=== PATIENT | male | born 1955 | race Caucasian/White ===

== ENCOUNTER → 2016-07-28 | Day surgery (SDC) | payer OTHER ==
[2016-07-17 09:59] VITALS: Ht 180.3 cm; Wt 127.3 kg
[~2016-07-28] VITALS: Ht 180.3 cm; Wt 127.3 kg
[~2016-07-28] MED LIST: ATEN100T8 PO; LIDOCAINE HCL 2% 2 ML VIAL (20MG/ML) ONE; MIDAZOLAM HCL 1 MG/ML 2ML VIAL ONE; MULT-506 PO; ONDANSETRON INJ 2 MG/ML 2 ML VIAL ONE; PROPOFOL IV EMULSION 10 MG/ML 20 ML VIAL IV ONE; PRVC40 PO; QUIN20TA30 PO; WARF5TAB7 PO
--- NOTE | 2016-07-28 14:43 | Endo History and Physical ---
History & Physical Date of Service: Jul 28, 2016. 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) Hx Thoracic Surgery: No Hx Orthopedic: Yes (RT KNEE SURGERY) Hx Urinary Tract Surgery: No Family History None Social History Smoking Status: Former Smoker Hx Substance Use: No Hx Alcohol Use: No Allergies Coded Allergies: No Known Allergies (Unverified , 07/28/16) Current Medications Reported Home Medications Medications Dose Route/Sig Max Daily Dose Days Date Category Dose Instructions Multivitamin (Multivitamins) Tab 1 Tab PO DAILY 06/09/16 Reported Jantoven (Warfarin Sodium) 5 Mg Tab 1.5 Tabs PO 5XWK 06/09/16 Reported SUN, MON, WED, THURS, FRI Jantoven (Warfarin Sodium) 5 Mg Tab 5 Mg PO 2XWK 06/09/16 Reported TUES, SAT Pravastatin Sodium (Pravastatin Sod) 40 Mg Tab 1 Tab PO HS 06/09/16 Reported Quinapril Hcl 20 Mg Tab 1 Tab PO QAM 06/09/16 Reported Tenoretic 100 Mg/25 Mg (Atenolol/Chlorthalidone) 100 Mg/25 Mg Tab 1 Tab PO QAM 05/24/12 Reported Vital Signs Weight (Kilograms): 127.27 Height (Feet): 5 Height (Inches): 11 Date Time Temp Pulse Resp B/P Pulse Ox O2 Delivery O2 Flow Rate FiO2 07/28/16 14:20 37.1 85 18 117/87 96 Room Air Physical Exam General Appearance: + obese Respiratory/Chest: Respiratory effort: no dyspnea Cardiovascular: Heart Auscultation: RRR Abdomen: Inspection & Palpation: soft Assessment and Plan For screening colonoscopy
--- NOTE | 2016-07-28 15:01 | Discharge Instructions ---
Endoscopy Patient Instructions Date / Procedure(s) Performed Jul 28, 2016. Colonoscopy Allergy Information Coded Allergies: No Known Allergies (Unverified , 07/28/16) Discharge Date / Findings Jul 28, 2016. Polyp, hemorrhoids Medication Instructions Stopped Medication(s): WARFARIN LAST DOSE 07/22/16 Restart Stopped Medication(s): resume meds Reported Home Medications Medications Dose Route/Sig Max Daily Dose Days Date Category Dose Instructions Multivitamin (Multivitamins) Tab 1 Tab PO DAILY 06/09/16 Reported Jantoven (Warfarin Sodium) 5 Mg Tab 1.5 Tabs PO 5XWK 06/09/16 Reported SUN, MON, WED, TH, FRI Jantoven (Warfarin Sodium) 5 Mg Tab 5 Mg PO 2XWK 06/09/16 Reported TUES, SAT Pravastatin Sodium (Pravastatin Sod) 40 Mg Tab 1 Tab PO HS 06/09/16 Reported Quinapril Hcl 20 Mg Tab 1 Tab PO QAM 06/09/16 Reported Tenoretic 100 Mg/25 Mg (Atenolol/Chlorthalidone) 100 Mg/25 Mg Tab 1 Tab PO QAM 05/24/12 Reported Provider Instructions Activity Restrictions - No exercising or heavy lifting for 24 hours. - Do not drink alcohol the day of the procedure. - Do not drive a car or operate machinery until the day after the procedure. - Do not make any important decisions or sign important papers in 24 hours after the procedure. Following Day: - Return to full activity which may include returning to work/school. Diet Start your diet with liquids and light foods (jello, soup, juice, toast). Then eat your usual diet if not nauseated. Treatment For Common After Affects For mild abdominal pain, bloating, or excessive gas: - Rest - Eat lightly - Lie on right side Follow-Up Information Follow-up with DR ISSA as scheduled Anesthesia Information What You Should Know You have had a procedure that required some medicine to reduce anxiety and discomfort. This treatment is called moderate sedation. After receiving the treatment, you may be sleepy, but you will be able to breathe on your own. The effects of the treatment may last for several hours. Follow these instructions along with Activity/Diet recommendations noted above: * Do NOT do anything where dizziness or clumsiness would be dangerous. * Rest quietly at home today, then you can be up and about tomorrow. * Have a responsible person stay with you the rest of today. * You may have had an I.V. today. If so, you may take the dressing off later today. Recommendations Call your doctor if: * Trouble breathing * Continuous vomiting for more than 24 hours * Temperature above 101 degrees * Severe abdominal pain or bloating * Pain not relieved by pain medicine ordered * There is increased drainage or redness from any incision * A large amount of rectal bleeding greater than 2-3 tablespoons. (If you had a polyp/s removed or have hemorrhoids, a small amount of blood - from the rectum is to be expected.) * You have any unanswered questions or concerns. IN THE EVENT OF A SERIOUS EMERGENCY, GO TO THE NEAREST EMERGENCY ROOM Your discharge instructions were prepared by provider Ajay Hammer. Patient Instructions Signature Page Bubba Bateman Patient (or Guardian) Signature/Date: I have read and understand the instructions given to me by my caregivers. Caregiver/RN/Doctor Signature/Date: The above-named patient and/or guardian has received patient instructions on this date. + Original Patient Signature Page (only) stays with chart. Please make copy for patient.
--- NOTE | 2016-07-28 15:04 | GI REPORT ---
Procedure Date: 07/28/2016 2:44 PM Procedure: Colonoscopy Indications: Screening for colorectal malignant neoplasm Medicines: Midazolam 2 mg IV, Zofran 4 mg IV, Propofol total dose 350 mg IV, Lidocaine 60 mg IV Complications: No immediate complications. Estimated Blood Loss: Estimated blood loss: none. Procedure: Pre-Anesthesia Assessment: - Prior to the procedure, a History and Physical was performed, and patient medications, allergies and sensitivities were reviewed. The patient's tolerance of previous anesthesia was reviewed. - The risks and benefits of the procedure and the sedation options and risks were discussed with the patient. All questions were answered and informed consent was obtained. After I obtained informed consent, the scope was passed under direct vision. Throughout the procedure, the patient's blood pressure, pulse, and oxygen saturations were monitored continuously. The Scope was introduced through the anus and advanced to the cecum, identified by appendiceal orifice and ileocecal valve. The colonoscopy was performed without difficulty. The patient tolerated the procedure well. The quality of the bowel preparation was good. Findings: Non-bleeding internal hemorrhoids were found during endoscopy. The hemorrhoids were moderate. A 6 mm polyp was found in the ascending colon. The polyp was sessile. The polyp was removed with a hot snare. Resection and retrieval were complete. Estimated blood loss: none. Impression: - Non-bleeding internal hemorrhoids. - One 6 mm polyp in the ascending colon, removed with a hot snare. Resected and retrieved. Recommendation: - Discharge patient to home (ambulatory). - Continue present medications. - Await pathology results. - Return to primary care physician PRN. Ajay Hammer M.D. Ajay Hammer MD 07/28/2016 3:05:17 PM This report has been signed electronically. Note Initiated On: 07/28/2016 2:44 PM I attest to the content of the Intraoperative Record and orders documented therein, exceptions below
--- NOTE | 2016-07-28 15:30 | Anesthesiology Progress Note ---
Anesthesia Post Op Note Date & Time Jul 28, 2016 at 15:30 Vital Signs Pain Intensity: 0 Vital Signs Past 12 Hours Date Time Temp Pulse Resp B/P Pulse Ox O2 Delivery O2 Flow Rate FiO2 07/28/16 15:20 89 20 125/78 95 Room Air 07/28/16 15:05 97 18 136/71 95 Room Air 07/28/16 14:20 37.1 85 18 117/87 96 Room Air Notes Mental Status: alert / awake / arousable, participated in evaluation Pt Amnestic to Procedure: Yes Nausea / Vomiting: adequately controlled Pain: adequately controlled Airway Patency, RR, SpO2: stable & adequate BP & HR: stable & adequate Hydration State: stable & adequate Anesthetic Complications: no major complications apparent
[2016-07-28 15:34] VITALS: BP 99/68; PULSE 72; O2SAT 95
== END | disposition home or self-care (01) ==
LOC: C.GI 13:57
PROVIDERS: ATTEND Internal Medicine Gastroenterology
DX: Z12.11 Encounter for screening for malignant neoplasm of colon (principal); Z80.0 Family history of malignant neoplasm of digestive organs; K63.5 Polyp of colon; K64.8 Other hemorrhoids; Z90.49 Acquired absence of other specified parts of digestive tract; F17.210 Nicotine dependence, cigarettes, uncomplicated; Z79.01 Long term (current) use of anticoagulants